=== PATIENT | male | born 1955 | race Caucasian/White ===

== ENCOUNTER → 2017-07-09 | Outpatient (CLI) | payer BC ==
--- NOTE | 2017-07-09 14:28 | PCVCIMAG ---
APPROVED REPORT Exam: Stress Echocardiogram Indication: Abnormal ekg, hypertension. Patient Location: Echo lab Stress Nurse: Genie Su RN Status: routine Ht: 5 ft 9 in HR: 105 bpm BP: 110/80 mmHg Rhythm: NSR Procedure The patient underwent an Exercise Stress Test using the Eyal Protocol. Blood pressure, heart rate, and EKG were monitored. An Echocardiogram was performed by food quality technician in four stages in quad fashion. At peak stress, four selected images were obtained and placed side by side with resting images for comparison. Stress Test Details Stress Test: Exercise stress testing was performed using a Eyal protocol. HR Resting HR: 105 bpmMax Heart Rate (APMHR): 160 bpm Max HR Achieved: 169 bpmTarget HR (85% APMHR): 136 bpm % of APMHR: 105 HR response to stress: Normal HR response to stress BP Resting BP: 110/80 mmHg Max BP: 174/84 mmHg ECG Resting ECG: Sinus rhythm, PVC's, PAC's Stress ECG: Sinus rhythm, PVC's, PAC's Arrhythmia: APC's, VPC's Recovery ECG: Sinus Rhythm Clinical Reason for Termination: Maximal effort Exercise duration: 7 min 45 sec Highest Stage Achieved: Stage 3: 3.4 mph at 14% grade. Exercise capacity: 10.10 METs Overall Exercise Capacity for Age: Average Stress ECG Conclusion 1.SUBJECTIVELY NEGATIVE FOR ISCHEMIA 2.ELECTROCARDIOGRAPHICALLY ABNORMAL 3.AVERAGE FUNCTIONAL CAPACITY 4.BASELINE PVCs RESOLVED WITH EXERCISE Pre-Stress Echo The resting Echocardiogram showed normal left ventricular contractility with an estimated Ejection Fraction of about 55-60%. Normal wall motion in all segments on baseline images. Post-Stress Echo The stress Echocardiogram showed normal left ventricular contractility with an estimated Ejection Fraction of about 60-65%. Normal augmentation of wall motion in all segments on post stress images. Clinical No clinical or ECG evidence for ischemia. Conclusion Clinical Response: Non-ischemic Exercise Capacity: Average Stress ECG Response: Non-ischemic Stress Echo Images: Non-ischemic The left ventricle is normal in size and wall thickness in both the rest and stress images. 1. LOW RISK STUDY Other Information Study Quality: Adequate <Conclusion> The left ventricle is normal in size and wall thickness in both the rest and stress images. 1. LOW RISK STUDY
== END | disposition home or self-care (01) ==
LOC: PCVCIMAG 12:55
PROVIDERS: ATTEND Internal Medicine
DX: I10 Essential (primary) hypertension (principal); R94.31 Abnormal electrocardiogram [ECG] [EKG]; E78.5 Hyperlipidemia, unspecified; I49.3 Ventricular premature depolarization
CPT/HCPCS: 93325; 93351